=== PATIENT | female | born 1990 | race Caucasian/White ===

== ENCOUNTER 2024-01-24 22:19 | Emergency (ER) | payer OTHER ==
[~2024-01-24 22:19] MED LIST: LIDOCAINE PATCH REMOVAL MC SCH
[2024-01-24 22:38] VITALS: RESP 18; BMI 35.9
[2024-01-24] MEDS ORDERED: SODIUM CHLORIDE 0.9% 500 ML INFUS.BAG IV ONE (23:19)
[2024-01-25] MEDS ORDERED: LIDOCAINE 4% PATCH TP ONE (00:02)
[2024-01-25] MEDS ORDERED: LIDOCAINE 4% PATCH TP SCH ×2 (00:02→10:00)
[2024-01-25] MEDS: LIDOCAINE 4% PATCH TP ONE (00:09)
[2024-01-25 00:17] LABS: PH,URINE 5.5 (5.0-8.0); URINE APPEARANCE CLEAR; URINE BILIRUBIN NEGATIVE (NEGATIVE); URINE COLOR YELLOW; URINE GLUCOSE (UA) NEGATIVE (NEGATIVE); URINE KETONE TRACE (NEGATIVE); URINE LEUK ESTERASE NEGATIVE (NEGATIVE); URINE NITRITE NEGATIVE (NEGATIVE); URINE PROTEIN NEGATIVE (NEGATIVE)
[2024-01-25 01:34] VITALS: BP 107/74; PULSE 93; TEMP 98.2
[2024-01-25] MEDS ORDERED: LIDOCAINE PATCH REMOVAL MC SCH (22:00)
== END 2024-01-25 02:10 | disposition home or self-care (01) ==
LOC: JER 22:19
DX: O99.891 Other specified diseases and conditions complicating pregnancy (principal); M54.50 Low back pain, unspecified; Z3A.23 23 weeks gestation of pregnancy
CPT/HCPCS: 81003; 87086; 99283-25

== ENCOUNTER 2024-05-23 10:49 | Inpatient (IN) | payer OTHER ==
[2024-05-23] MEDS ORDERED: OXYTOCIN 20 UNITS in 0.9% NS 20 UNIT/1,000 ML INFUS.BAG IV ONE ×2 (11:18→13:00)
[2024-05-23] MEDS ORDERED: LIDOCAINE HCL 1% PRESERVATIVE FREE - 30ML VIAL ONE (11:31)
[2024-05-23] MEDS: METHYLERGONOVINE MALEATE 0.2 MG/1 ML AMP IM ONE (12:03)
[2024-05-23] MEDS ORDERED: ACETAMINOPHEN 325 MG TABLET (FP) ONE (13:00)
[2024-05-23] MEDS: ACETAMINOPHEN 325 MG TABLET (FP) PO PRN (13:00)
[2024-05-23 13:08] VITALS: BMI 39.4
[2024-05-23 13:11] LABS: BASO % 0.3 % (0-2.0); HEMATOCRIT 32.7 % (32.4-45.2); HEMOGLOBIN 10.3 GM/dL (10.7-15.3); LYMPH % 10.4 % (8-40); MCHC 31.4 g/dl (32.0-36.0); MEAN CELL VOLUME 73.2 fl (80-96); MEAN PLT VOLUME 7.9 fl (7.5-11.1); MONO % 4.3 % (3.8-10.2); PLATELET COUNT 232 10^3/uL (134-434); RBC 4.47 M/mm3 (3.60-5.2); RDW 18.6 % (11.6-15.6); WHITE BLOOD COUNT 10.7 K/mm3 (4.0-10.0)
[2024-05-23 13:20] LABS: INR 0.91 (0.83-1.09); PROTHROMBIN TIME (PATIENT) 10.5 SEC (9.7-13.0)
[2024-05-23 13:23] LABS: ACTIVATED PTT 23.1 SECONDS (25.2-36.5)
[2024-05-23 13:24] LABS: POTASSIUM 4.4 mmol/L (3.5-5.1)
[2024-05-23 13:25] LABS: CALCIUM 8.6 mg/dL (8.5-10.1)
[2024-05-23 13:26] LABS: BLOOD UREA NITROGEN 8.4 mg/dL (7-18)
[2024-05-23 13:29] LABS: CREATININE 0.7 mg/dL (0.55-1.3)
[2024-05-23] MEDS: OXYTOCIN 20 UNITS in 0.9% NS 20 UNIT/1,000 ML INFUS.BAG IV SCH (14:00)
[2024-05-23 14:17] VITALS: RESP 18
[2024-05-23] MEDS ORDERED: BISACODYL 10 MG SUPP.RECT RC PRN (14:18)
[2024-05-23] MEDS ORDERED: BENZOCAINE 28 GM HEMORRHOIDAL OINTMENT TP PRN (14:18)
[2024-05-23] MEDS ORDERED: BENZOCAINE 20% 57 GM BOTTLE TP PRN (14:18)
[2024-05-23] MEDS ORDERED: WITCH HAZEL 50% (TUCKS) 40 PAD/JAR PAD TP PRN (14:18)
[2024-05-23] MEDS ORDERED: METHYLERGONOVINE MALEATE 0.2 MG/1 ML AMP IM PRN (14:18)
[2024-05-23] MEDS: IBUPROFEN 600 MG TABLET (FP) PO PRN (20:45)
[2024-05-24 07:57] LABS: BASO % 0.4 % (0-2.0); EOS % 0.5 % (0-4.5); HEMATOCRIT 28.6 % (32.4-45.2); HEMOGLOBIN 8.8 GM/dL (10.7-15.3); LYMPH % 18.2 % (8-40); MCH 22.2 pg (25.7-33.7); MCHC 30.6 g/dl (32.0-36.0); MEAN CELL VOLUME 72.5 fl (80-96); MEAN PLT VOLUME 7.7 fl (7.5-11.1); MONO % 8.2 % (3.8-10.2); NEUT % 72.7 % (42.8-82.8); PLATELET COUNT 239 10^3/uL (134-434); RBC 3.95 M/mm3 (3.60-5.2); RDW 18.6 % (11.6-15.6); WHITE BLOOD COUNT 11.5 K/mm3 (4.0-10.0)
[2024-05-24] MEDS: FERROUS SO4 325 MG TABLET (FP) PO SCH (09:44)
[2024-05-24 21:42] VITALS: BP 115/57; PULSE 92; TEMP 98
[2024-05-24] MEDS ORDERED: SENNOSIDES/DOCUSATE COMBO (SENNA PLUS) TABLET (UD) PO PRN (22:00)
== END 2024-05-25 10:49 | disposition home or self-care (01) | DRG 560 ==
LOC: JLDR 10:49 → J3W 14:05
PROVIDERS: ADMIT Obstetrics & Gynecology Obstetrics; ATTEND Obstetrics & Gynecology Obstetrics
PROC: 10E0XZZ Delivery of Products of Conception, External Approach (ICD-10-PCS; principal; 2024-05-23)
PROC: 0HQ9XZZ Repair Perineum Skin, External Approach (ICD-10-PCS; 2024-05-23)
DX: O48.0 Post-term pregnancy (principal); O70.0 First degree perineal laceration during delivery; Z3A.40 40 weeks gestation of pregnancy; Z37.0 Single live birth
CPT/HCPCS: 36415; 59409; 80048; 85025; 85610; 85730; 86780; 86850; 86900; 86901